=== PATIENT | male | born 1970 | race American Indian/Alaskan Native ===

== ENCOUNTER 2018-06-28 09:23 | Emergency (ER) | payer MEDICAID ==
[2018-06-28 09:34] VITALS: RESP 18
--- NOTE | 2018-06-28 10:47 | ED PDOC ---
Arrival/HPI - General Chief Complaint: Back Pain Time Seen by Provider: 06/28/18 09:25 Historian: Patient - History of Present Illness Narrative History of Present Illness (Text): 06/28/18 10:43 48 year old male, whose past medical history includes pneumonia, presents to the emergency department complaining of back pain that began 2 days ago. Patient states he was getting out of a chair reaching for something when he suddenly developed pain to his upper back. At that time, pain was worse with movement. No associated shortness of breath. No rash. No chest pain. No abdominal pain. No dizziness. Patient states he took a Motrin with relief. Patient states he currently has no pain. He also reports he is worried about possible pneumonia due to "sleeping under an air conditioner". Patient denies any fever, chills, cough, sore throat, chest pain, shortness of breath, nausea, vomiting, diarrhea, urinary symptoms, neck pain, headache, dizziness, or any other complaints. PMD: Dr. Stevo Teran 06/28/18 15:44 Time/Duration: Other (2 days) Symptom Onset: Sudden Symptom Course: Resolved Activities at Onset: Light Context: Home Past Medical History - Provider Review Nursing Documentation Reviewed: Yes - Psychiatric Hx Substance Use: No Family/Social History - Physician Review Nursing Documentation Reviewed: Yes Family/Social History: No Known Family HX Smoking Status: Never Smoked Hx Alcohol Use: No Hx Substance Use: No Allergies/Home Meds Allergies/Adverse Reactions: Allergies No Known Allergies Allergy (Verified 06/28/18 09:33) Review of Systems - Review of Systems Constitutional: absent: Fatigue, Fevers, Other (Chills) ENT: absent: Sore Throat Respiratory: absent: SOB, Cough Cardiovascular: absent: Chest Pain, Edema, RHODES Gastrointestinal: absent: Diarrhea, Nausea, Vomiting Genitourinary Male: absent: Dysuria, Frequency, Hematuria Musculoskeletal: Back Pain. absent: Arthralgias, Neck Pain, Joint Swelling Skin: absent: Rash, Pruritis, Laceration, Abscess Neurological: absent: Headache, Dizziness, Gait Changes Hemo/Lymphatic: absent: Easy Bleeding Psychiatric: absent: Depression Physical Exam - Physical Exam Narrative Physical Exam (Text): Head: Atraumatic. Normocephalic. Eyes: PERRL. EOMI. Conjunctivae are not pale. ENT: Mucous membranes are moist and intact. Oropharynx is clear and symmetric. Neck: Supple. Full ROM. No JVD. No lymphadenopathy. No pain with movements. No soft tissue swelling. Cardiovascular: Regular rate. Regular rhythm. No murmurs, rubs, or gallops. Distal pulses are 2+ and symmetric. Pulses symmetric. Pulmonary/Chest: No evidence of respiratory distress. Clear to auscultation bilaterally. No wheezing, rales or rhonchi. Chest wall nontender. Abdominal: Soft and non-distended. There is no tenderness. No rebound, guarding, or rigidity. No organomegaly. Good bowel sounds. Back: No CVA tenderness. No edema or crepitus. No midline tenderness. Extremities: No edema. No cyanosis. No clubbing. Full range of motion in all extremities. No calf tenderness. No pulse deficits. Skin: Skin is warm and dry. No petechiae. No purpura. No vesicular rash. Neurological: Alert, awake, and oriented. Motor and sensory exam intact. Psychiatric: Good eye contact. Normal interaction, affect, and behavior. 06/28/18 15:47 Vital Signs Reviewed: Yes Vital Signs Temp Pulse Resp BP Pulse Ox 06/28/18 11:38 98 F 77 18 141/84 99 06/28/18 11:31 98 F 77 18 141/84 98 06/28/18 09:31 98.2 F 65 18 159/103 H 100 Temperature: Afebrile Blood Pressure: Hypertensive Pulse: Regular Respiratory Rate: Normal Appearance: Positive for: Well-Appearing, Non-Toxic, Comfortable Pain Distress: None Mental Status: Positive for: Alert and Oriented X 3 Medical Decision Making ED Course and Treatment: 06/28/18 10:43 Impression: 48 year old male presents complaining of back pain that occurred 2 days ago s/p lay forward on his bed when he felt the pain. Pain has resolved. Plan: -- Chest X-ray 2V -- Reassess and disposition Progress Notes: Patient currently with no pain. No respiratory distress. No wheezing. No urinary symptoms. No flank pain. NO lower back pain. No rash. NO direct trauma. Lungs are clear. No fever. Currently denies pain. PROCEDURE: Chest X-ray Dictator : Ronnie Gilliland MD Report Date : 06/28/2018 11:54:47 IMPRESSION: No active disease. 06/28/18 11:15 On re-evaluation, patient feels better and is in no acute distress. I have discussed the results and plan with the patient, who expresses understanding. Patient in agreement with plan to be discharged home. Patient is stable for discharge. Patient was instructed to follow up with physician or return if symptoms worsen or new concerning symptoms arise. Blood pressure improved on re-evaluation. He was informed to have blood pressure rechecked with PMD. He currently has no headache, no chest pain, no shortness of breath. Suspect possible muscle strain. Currently no pain or distress. 06/28/18 15:48 - RAD Interpretation Radiology Orders: 06/28/18 10:42 CHEST TWO VIEWS (PA/LAT) [RAD] Stat [employer]ty Manufacturing Supervisor: Radiologist - Scribe Statement The provider has reviewed the documentation as recorded by the Renetta Morse Provider Scribe Attestation: All medical record entries made by the Sarahibe were at my direction and personally dictated by me. I have reviewed the chart and agree that the record accurately reflects my personal performance of the history, physical exam, medical decision making, and the department course for this patient. I have also personally directed, reviewed, and agree with the discharge instructions and disposition. Disposition/Present on Arrival - Present on Arrival Any Indicators Present on Arrival: No History of DVT/PE: No History of Uncontrolled Diabetes: No Urinary Catheter: No History of Decub. Ulcer: No History Surgical Site Infection Following: None - Disposition Have Diagnosis and Disposition been Completed?: Yes Diagnosis: Back pain Disposition: HOME/ ROUTINE Disposition Time: 11:15 Patient Plan: Discharge Condition: GOOD Discharge Instructions (ExitCare): Upper Back Pain (DC) Additional Instructions: For any return of pain, any fevers, any shortness of breath, any headaches, any abdominal pain, any nausea or vomiting, any weakness, any urinary symptoms, any rash, any discomfort, get rechecked. Follow-up with your physician in 1-2 days. Have your blood pressure rechecked in 1-2 days. Prescriptions: Naproxen 250 mg PO BID PRN #10 tablet PRN Reason: Pain, Mild (1-3) Referrals: Flora Teran MD [Primary Care Provider] - Follow up with primary Forms: [employer] (Greenlandic)
[2018-06-28 11:31] VITALS: BP 141/84; PULSE 77; TEMP 98
[2018-06-28 11:38] VITALS: O2SAT 99
--- NOTE | 2018-06-28 11:56 | RAD ---
Date of service: 06/28/2018 HISTORY: right sided back pain COMPARISON: No prior. TECHNIQUE: Chest PA and lateral FINDINGS: LUNGS: No active pulmonary disease. PLEURA: No significant pleural effusion identified. No pneumothorax apparent. CARDIOVASCULAR: Normal. OSSEOUS STRUCTURES: No significant abnormalities. VISUALIZED UPPER ABDOMEN: Normal. OTHER FINDINGS: None. IMPRESSION: No active disease.
== END 2018-06-28 11:37 | disposition home or self-care (01) ==
LOC: ED 09:23
DX: M54.9 Dorsalgia, unspecified (principal)